=== PATIENT | male | born 1970 | race African-American/Black ===

== ENCOUNTER 2023-10-06 12:38 | Inpatient (IN) | payer OTHER ==
[2023-10-06 13:54] VITALS: BMI 21.9
[2023-10-06] MEDS ORDERED: NICOTINE POLACRILEX 2 MG LOZENGE BC PRN (16:51)
[2023-10-06] MEDS ORDERED: POLYETHYLENE GLYCOL (HEALTHYLAX) 3350 17 GM PACKET PO PRN (16:51)
[2023-10-06] MEDS ORDERED: MAGNESIUM HYDROX 2400MG/30ML ORAL SUSPENSION 30 ML CUP PO PRN (16:51)
[2023-10-06] MEDS ORDERED: LOPERAMIDE HCL 2 MG CAPSULE PO PRN (16:51)
[2023-10-06] MEDS ORDERED: NICOTINE POLACRILEX 2 MG GUM BUC PRN (16:51)
[2023-10-06] MEDS ORDERED: hydrOXYzine PAMOATE 25 MG CAPSULE (FP) PO PRN (16:51)
[2023-10-06] MEDS ORDERED: BENZONATATE 200 MG CAPSULE PO PRN (16:51)
[2023-10-06] MEDS ORDERED: guaiFENesin 600 MG TABLET.ER (FP) PO PRN (16:51)
[2023-10-06] MEDS ORDERED: BENZOCAINE/MENTHOL (CHLORASEPTIC ) LOZENGE MM PRN (16:51)
[2023-10-06] MEDS ORDERED: ONDANSETRON *ODT* 4 MG TABLET SL PRN (16:51)
[2023-10-06] MEDS ORDERED: ACETAMINOPHEN 325 MG TABLET (FP) PO PRN (16:51)
[2023-10-06] MEDS ORDERED: BISMUTH SUBSALICYLATE 524 MG/30 ML PO PRN (16:51)
[2023-10-06] MEDS ORDERED: MAG HYDROX/AL HYDROX/SIMETH 30 ML UNIT-DOSE CUP PO PRN (16:51)
[2023-10-06] MEDS: MELATONIN 5 MG TABLETS PO SCH (22:23)
[2023-10-06] MEDS: THIAMINE 100 MG TABLET PO SCH (22:23)
[2023-10-07] MEDS: PRENATAL VITAMINS W/ FOLIC ACID TABLET (FP) PO SCH (10:05)
[2023-10-07] MEDS: IBUPROFEN 600 MG TABLET (FP) PO PRN (10:06)
[2023-10-07] MEDS: METHOCARBAMOL 500 MG TABLET PO PRN (10:06)
[2023-10-07 11:50] LABS: HEMATOCRIT 35.4 % (35.4-49); HEMOGLOBIN 11.6 GM/dL (11.7-16.9); MCH 34.4 pg (25.7-33.7); MCHC 32.8 g/dl (32.0-35.9); MEAN CELL VOLUME 104.9 fl (80-96); MEAN PLT VOLUME 10.2 fl (7.5-11.1); PLATELET COUNT 147 10^3/uL (134-434); RBC 3.37 M/mm3 (4.00-5.60); RDW 14.1 % (11.9-15.9); WHITE BLOOD COUNT 6.6 K/mm3 (4.0-10.0)
[2023-10-07 12:00] LABS: CHLORIDE 109 mmol/L (98-107); POTASSIUM 3.9 mmol/L (3.5-5.1); SODIUM 143 mmol/L (136-145)
[2023-10-07 12:15] LABS: ALBUMIN 2.3 g/dl (3.4-5.0); ANION GAP 2 mmol/L (4-13); CO2 33 mmol/L (21-32); GLUCOSE,RANDOM 96 mg/dL (74-106)
[2023-10-07 12:16] LABS: CALCIUM 8.6 mg/dL (8.5-10.1)
[2023-10-07 12:20] LABS: BILIRUBIN,TOTAL 0.8 mg/dL (0.2-1); TOT PROT 4.7 g/dl (6.4-8.2)
[2023-10-07 12:22] LABS: ALK PHOS 102 U/L (45-117); BLOOD UREA NITROGEN 1.8 mg/dL (7-18); CREATININE 0.5 mg/dL (0.55-1.3); SGOT/AST 36 U/L (15-37); SGPT/ALT 19 U/L (13-61)
[2023-10-07] MEDS: DICYCLOMINE HCL 10 MG CAPSULE PO PRN (22:37)
[2023-10-08] MEDS ORDERED: chlordiazePOXIDE HCL 25 MG CAPSULE PO PRN (09:44)
[2023-10-08] MEDS: chlordiazePOXIDE HCL 25 MG CAPSULE PO SCH (10:50)
[2023-10-10] MEDS: chlordiazePOXIDE HCL 25 MG CAPSULE PO SCH (05:58)
[2023-10-10] MEDS: IBUPROFEN 400 MG TABLET (FP) PO PRN (06:00)
[2023-10-11] MEDS ORDERED: chlordiazePOXIDE HCL 10 MG CAPSULE PO PRN
[2023-10-11] MEDS ORDERED: chlordiazePOXIDE HCL 10 MG CAPSULE PO SCH (05:00)
[2023-10-11 23:29] LABS: URINE APPEARANCE CLEAR; URINE BILIRUBIN NEGATIVE (NEGATIVE); URINE COLOR YELLOW; URINE GLUCOSE (UA) NEGATIVE (NEGATIVE); URINE KETONE NEGATIVE (NEGATIVE); URINE LEUK ESTERASE NEGATIVE (NEGATIVE); URINE NITRITE NEGATIVE (NEGATIVE); URINE PROTEIN NEGATIVE (NEGATIVE); URINE UROBILINOGEN 0.2 mg/dL (0.2-1.0)
[2023-10-12] MEDS ORDERED: chlordiazePOXIDE HCL 10 MG CAPSULE PO SCH (05:00)
[2023-10-13] MEDS: chlordiazePOXIDE HCL 10 MG CAPSULE PO ONE (05:36)
[2023-10-13 05:46] VITALS: RESP 16
[2023-10-13 08:52] VITALS: TEMP 98
[2023-10-13 08:53] VITALS: BP 86/56; PULSE 81
== END 2023-10-13 09:33 | disposition home or self-care (01) | DRG 775 ==
LOC: YASAS 12:38 → Y3N 17:55
PROVIDERS: ADMIT Allergy & Immunology; ATTEND Surgery
PROC: HZ2ZZZZ Detoxification Services for Substance Abuse Treatment (ICD-10-PCS; principal; 2023-10-06)
DX: F10.230 Alcohol dependence with withdrawal, uncomplicated (principal); F10.220 Alcohol dependence with intoxication, uncomplicated; F17.210 Nicotine dependence, cigarettes, uncomplicated; F10.282 Alcohol dependence with alcohol-induced sleep disorder; F10.24 Alcohol dependence with alcohol-induced mood disorder; I95.9 Hypotension, unspecified; Z56.0 Unemployment, unspecified; Z59.00 Homelessness unspecified
CPT/HCPCS: 36415; 80053; 80305; 80307; 81003; 84520; 85027; 86780